=== PATIENT | female | born 1970 | race Hispanic/Latino ===

== ENCOUNTER 2017-07-02 11:48 | Observation (INO) | payer BC ==
[2017-07-02 12:22] VITALS: BMI 36.3
--- NOTE | 2017-07-02 12:29 | ED PDOC ---
Arrival/HPI - General Chief Complaint: Chest Pain Time Seen by Provider: 07/02/17 12:01 Historian: Patient - History of Present Illness Narrative History of Present Illness (Text): 07/02/17 12:20 47F obese w/ no significant cardiac history presents to the ED with Right sided sharp chest pain that radiates down the right arm that started yesterday. pain went away on its own, and started again today w/ heart palpitations. Pain was associate with diaphoresis. Denies pleuritic chest pain. Upon arrival to the ED symptoms have once again resolved. Pain is non-reproducible w/ palpation. Denies associated: changes in vision, loss of conciseness, numbness/tingling in extremities, current heart palpitations, shortness of breath, nausea, vomiting, diarrhea, fevers, chills, PMH: rosacea PSH: c-sec x 3 ALL: NKDA FamilyHx: hx of CAD and heart attack in extended family. Denies CAD in 1st degree relatives SocialHx: works at [employer], no additional stressors at this time. Drinks Caffeine at night. feels safe at home. Denies tobacco, EtOH, recreational drug use PMD: Dr. Dodd 07/02/17 13:41 Time/Duration: 24 hours Context: Work Past Medical History - Provider Review Nursing Documentation Reviewed: Yes - Travel History Have you recently traveled outside [place] w/in the past 3 mons?: No - Past History Past History: Non-Contributing - Infectious Disease Hx of Infectious Diseases: None - Cardiac Hx Cardiac Disorders: No - Pulmonary Hx Respiratory Disorders: No - Neurological Hx Neurological Disorder: No - HEENT Hx HEENT Disorder: No - Renal Hx Renal Disorder: No - Endocrine/Metabolic Hx Endocrine Disorders: No - Hematological/Oncological Hx Blood Disorders: No - Integumentary Other/Comment: Rosacea - Musculoskeletal/Rheumatological Hx Musculoskeletal Disorders: No - Gastrointestinal Hx Gastrointestinal Disorders: No - Genitourinary/Gynecological Hx Genitourinary Disorders: No - Psychiatric Hx Psychophysiologic Disorder: No Hx Substance Use: No - Anesthesia Hx Anesthesia: No Family/Social History - Physician Review Nursing Documentation Reviewed: Yes Family/Social History: CAD/VT Narrative Family History (Free Text): 07/02/17 14:01 Maternal side w/ Cardiac history w/ uncles. Smoking Status: Never Smoked Hx Alcohol Use: No Hx Substance Use: No Hx Substance Use Treatment: No Allergies/Home Meds Allergies/Adverse Reactions: Allergies No Known Allergies Allergy (Verified 07/02/17 12:08) Home Medications: Home Meds Medication Instructions Recorded Confirmed No Known Home Med 07/02/17 07/02/17 Review of Systems - Review of Systems Eyes: Normal Respiratory: Normal Cardiovascular: Normal Gastrointestinal: Normal Musculoskeletal: Normal Skin: Normal Physical Exam Vital Signs Reviewed: Yes Vital Signs Temp Pulse Resp BP Pulse Ox 07/02/17 12:08 98.2 F 70 18 137/73 98 Temperature: Afebrile Blood Pressure: Normal Pulse: Regular Respiratory Rate: Normal Appearance: Positive for: Well-Appearing, Non-Toxic Mental Status: Positive for: Alert and Oriented X 3 - Systems Exam Head: Present: Atraumatic Pupils: Present: PERRL Extroacular Muscles: Present: EOMI Mouth: Present: Moist Mucous Membranes Respiratory/Chest: Present: Clear to Auscultation, Good Air Exchange. No: Respiratory Distress, Accessory Muscle Use, Rhonchi Cardiovascular: Present: Normal S1, S2 Abdomen: Present: Normal Bowel Sounds. No: Tenderness, Distention, Peritoneal Signs, Rebound, Guarding, McBurney's Point Tender Upper Extremity: Present: Normal Inspection, Capillary Refill < 2s. No: Cyanosis, Edema Lower Extremity: Present: Normal Inspection. No: Edema, Sunny's Sign Neurological: Present: GCS=15 Skin: Present: Warm, Rashes, Other (Facial erythematous rash) Psychiatric: Present: Alert, Oriented x 3 Medical Decision Making ED Course and Treatment: 07/02/17 12:30 CXR EKG Trops Labs: lipase & UA 07/02/17 13:55 Chest Xray- no acute changes First set of trops negative EKG NSR UA& Lipase normal Discussed w/ Dr. Fuentes w/ Patient onsent and associate symptoms and significant family history of cardiac disease. Patient to be admitted remote telemetry Re-evaluation Time: 14:03 Reassessment Condition: Improved - Lab Interpretations Lab Results: 07/02/17 12:30 07/02/17 12:30 Lab Results 07/02/17 12:50: Urine Color Yellow, Urine Appearance Clear, Urine pH 6.0, Ur Specific [place] 1.020, Urine Protein Negative, Urine Glucose (UA) Negative, Urine Ketones Negative, Urine Blood Negative, Urine Nitrate Negative, Urine Bilirubin Negative, Urine Urobilinogen 0.2, Ur Leukocyte Esterase Negative 07/02/17 12:30: Sodium 141, Potassium 4.0, Chloride 106, Carbon Dioxide 25, Anion Gap 14, BUN 11, Creatinine 0.8, Est GFR ( Amer) > 60, Est GFR (Non- Af Amer) > 60, Random Glucose 92, Calcium 9.5, Total Bilirubin 0.4, AST 27, ALT 64 H, Alkaline Phosphatase 80, Troponin I < 0.01, Total Protein 7.3, Albumin 4.0 , Globulin 3.2, Albumin/Globulin Ratio 1.3, Lipase 79 07/02/17 12:30: WBC 7.3, RBC 4.89, Hgb 13.8, Hct 41.2, MCV 84.3, MCH 28.2, MCHC 33.5, RDW 13.9, Plt Count 253, MPV 11.3 H, Gran % 67.5, Lymph % (Auto) 24.1, [place] % (Auto) 6.5 H, Eos % (Auto) 1.6, Baso % (Auto) 0.3, Gran # 4.94, Lymph # ( Auto) 1.8, [place] # (Auto) 0.5, Eos # (Auto) 0.1, Baso # (Auto) 0.02 I have reviewed the lab results: Yes Interpretation: All labs normal - RAD Interpretation Narrative RAD Interpretations (Text): CXR within normal limits no signs of acute active disease Radiology Orders: 07/02/17 12:30 CHEST TWO VIEWS (PA/LAT) [RAD] Stat - EKG Interpretation EKG Interpretation (Text): NSR Normal QT duration WI interval normal. No previous EKG to compare Interpreted by ED Physician: Yes Type: 12 lead EKG Comparison: No previous EKG avail. Disposition/Present on Arrival - Present on Arrival Any Indicators Present on Arrival: No History of DVT/PE: No History of Uncontrolled Diabetes: No Urinary Catheter: No History of Decub. Ulcer: No History Surgical Site Infection Following: None - Disposition Have Diagnosis and Disposition been Completed?: Yes Diagnosis: Chest pain with low risk for cardiac etiology Disposition: HOSPITALIZED Disposition Time: 13:59 Patient Plan: Admission, Observation Condition: STABLE Discharge Instructions (ExitCare): Chest Pain (ED) Forms: [employer] (Lithuanian)
[2017-07-02 12:55] LABS: BASO # 0.02 K/mm3 (0.0-2.0); BASO % 0.3 % (0.0-3.0); EOS # 0.1 (0.0-0.7); EOS % 1.6 % (1.5-5.0); GRAN # 4.94 (1.4-6.5); GRAN % 67.5 % (50.0-68.0); HEMOGLOBIN 13.8 g/dL (12.0-16.0); LYMPH # 1.8 (1.2-3.4); LYMPH % 24.1 % (22.0-35.0); MEAN CELL VOLUME 84.3 fl (80.0-105.0); MEAN CORPUSCULAR HEMOGLOBIN 28.2 pg (25.0-35.0); MEAN CORPUSCULAR HGB CONC 33.5 g/dl (31.0-37.0); MEAN PLATELET VOLUME 11.3 fl (7.0-11.0); MONO # 0.5 (0.1-0.6); MONO % 6.5 % (1.0-6.0); RBC 4.89 10^6/uL (3.5-6.1); RED CELL DISTRIBUTION WIDTH 13.9 % (11.5-14.5); WHITE BLOOD COUNT 7.3 10^3/ul (4.5-11.0)
[2017-07-02 13:00] LABS: URINE BILIRUBIN NEGATIVE (NEGATIVE); URINE BLOOD NEGATIVE (NEGATIVE); URINE GLUCOSE (UA) NEGATIVE (NEGATIVE); URINE LEUKOCYTE ESTERASE NEGATIVE Leu/uL (NEGATIVE); URINE NITRATE NEGATIVE (NEGATIVE); URINE PROTEIN NEGATIVE mg/dL (<30 mg/dL); URINE UROBILINOGEN 0.2 E.U./dL (<1 E.U./dL)
[2017-07-02 13:03] LABS: URINE APPEARANCE CLEAR (CLEAR); URINE COLOR YELLOW (YELLOW)
[2017-07-02 13:03] LABS: ALB/GLOB RATIO 1.3 (1.1-1.8); ALT/SGPT 64 U/L (7-56); AST/SGOT 27 U/L (14-36); BLOOD UREA NITROGEN 11 mg/dL (7-21); CALCIUM 9.5 mg/dL (8.4-10.5); GFR AFRICAN-AMERICAN > 60; GFR NON-AFRICAN AMERICAN > 60; LIPASE 79 U/L (23-300)
[2017-07-02 13:13] LABS: TROPONIN I < 0.01 ng/mL
--- NOTE | 2017-07-02 13:23 | RAD ---
HISTORY: chest pain COMPARISON: No prior. TECHNIQUE: Chest PA and lateral FINDINGS: LUNGS: No active pulmonary disease. PLEURA: No significant pleural effusion identified. No pneumothorax apparent. CARDIOVASCULAR: Normal. OSSEOUS STRUCTURES: No significant abnormalities. VISUALIZED UPPER ABDOMEN: Normal. OTHER FINDINGS: None. IMPRESSION: No active disease.
[2017-07-02 19:05] LABS: TROPONIN I < 0.01 ng/mL
--- NOTE | 2017-07-02 20:58 | HP ---
DATE OF EXAM: 07/02/2017 HISTORY OF PRESENT ILLNESS: This 47-year-old female was examined at her bedside in the emergency room where she is being admitted for chest pain. She presented to the emergency room earlier this morning complaining of sharp chest discomfort that radiated down her right arm and was associated with numbness and heart palpitations. The patient states she had a similar episode of chest discomfort last evening and when it recurred again today at work, was seen by the employment nursing staff who called and had the patient brought to the ER for further evaluation of the above. The patient was given aspirin on route and at present she is chest pain free. PAST MEDICAL HISTORY: Significant for rosacea and patient also is status post C-sections and tubal ligation. MEDICATIONS: She denies any oral medication. ALLERGIES: SHE DENIES ALLERGIES TO MEDICATION. FAMILY HISTORY: Significant in that her father has a history of a heart attack in his 50s and her maternal uncles all had cardiac issues including heart attack, coronary artery related deaths and permanent pacemaker placements. 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 REVIEW OF SYSTEMS: HEENT: Head review: No headache or seizure. Eye review: No change in visual acuity. Ear review: No hearing loss. Throat review: No swallowing difficulty. NECK REVIEW: No stiffness. CARDIAC REVIEW: No history of atherosclerotic heart disease. PULMONARY: No hemoptysis. GASTROINTESTINAL: No hematemesis. No melena. GENITOURINARY: No dysuria. SKIN: She has rosacea on her face. No ulcers. VASCULAR: No history of peripheral vascular disease. HEME; No history of anemia. NEUROLOGIC: No seizures. PSYCHOLOGICAL: Denied anxiety or depression. MEDICATIONS: No outpatient medications. PHYSICAL EXAMINATION: VITAL SIGNS: Temperature 98.2, respirations 18, pulse 70 and blood pressure 137/73. Pulse ox 98% room air. HEENT: Head normocephalic, atraumatic. Eyes: No icterus. Ears: Clear. Throat: Noninjected. NECK: Supple. HEART: Regular S1, S2. No pathological rubs, murmurs or gallops. LUNGS: Clear. ABDOMEN: Soft. EXTREMITIES: No edema. SKIN: Facial rosacea. VASCULAR: Legs warm to touch. PSYCHOLOGICAL: Alert and oriented x3. NEUROLOGIC: Grossly intact. LABORATORY DATA: White count 7300, hemoglobin 13.8, hematocrit 41.2, platelets 253,000. Sodium 141, K 4.0, chloride 106, bicarb 25, BUN 11, creatinine 0.8, random blood sugar 92. Bilirubin 0.4, AST 27, ALT 64, alk phos 80. Troponin less than 0.01. Lipase 79. Urinalysis unremarkable. Chest x-ray was reviewed. There was no pneumonic infiltrates. No pleural effusions, no pneumothorax and cardiac silhouette was normal in size. IMPRESSION: A 50-year-old female with a body mass index of 36 consistent with obesity, strong family history of atherosclerotic heart disease, admitted with chest pain and arm numbness, rule out coronary artery syndrome. PLAN: Patient will be admitted to the cardiac [facility]garwal. I have ordered a stat T4 level, a fasting lipid panel and cardiac isoenzymes x2. She did receive aspirin. She will get an order for Pepcid 40 mg p.o. at bedtime and I have ordered a echocardiogram to further evaluate her symptoms of chest pain. She will be started on a heart-healthy soft bland diet with plans for outpatient stress testing if all of the above is stable. All of the above was discussed in detail with the patient at her bedside and all questions were answered. Jocelyn Fuentes MD [facility]
[2017-07-03 00:57] LABS: TROPONIN I < 0.01 ng/mL
[2017-07-03 06:14] VITALS: RESP 18; O2SAT 98
[2017-07-03 07:13] LABS: HDL CHOLESTEROL 31 mg/dL (29-60)
[2017-07-03 07:23] LABS: LDL CHOLESTEROL 160 mg/dL (0-129)
--- NOTE | 2017-07-03 09:37 | CARD ---
APPROVED REPORT EKG Measurement Heart [id number] IA [id number] [id number] <Conclusion> Normal sinus rhythm Normal ECG
[2017-07-03 11:59] VITALS: BP 114/81; TEMP 98.8
[2017-07-03 16:00] VITALS: PULSE 70
--- NOTE | 2017-07-03 16:17 | CARD ---
APPROVED REPORT EXAM: Two-dimensional and M-mode echocardiogram with Doppler and color Doppler. INDICATION Chest Pain 2D DIMENSIONS Left Atrium (2D)3.6 (1.6-4.0cm)IVSd1.1 (0.7-1.1cm) Aortic Root (2D)3.0 (2.0-3.7cm)LVDd4.2 (3.9-5.9cm) PWd0.9 (0.7-1.1cm)LVDs2.1 (2.5-4.0cm) FS (%) 49.8 %LVEF (%)81.5 (>50%) M-Mode DIMENSIONS Aortic Cusp Exc.2.30 (1.5-2.0cm) Aortic Valve AoV Peak Uibxulcs551.0cm/Tricia Peak GR.5mmHg Mitral Valve MV E Wyemoqhk64.8cm/sMV A Bsmouzbj42.8cm/sE/A ratio1.1 TDI Lateral E' Peak V8.68cm/sMedial E' Peak V6.04cm/sE/Lateral E'6.4 E/Medial E'9.2 Pulmonary Valve PV Peak Reegfnbc98.1cm/sPV Peak Grad.3mmHg LEFT VENTRICLE The left ventricle is normal size. There is normal left ventricular wall thickness. The left ventricular function is normal.[id number] There is normal LV segmental wall motion. The left ventricular diastolic function is normal. No left ventricle thrombus noted on this study. There is no ventricular septal defect visualized. There is no left ventricular aneurysm. There is no mass noted in the left ventricle. RIGHT VENTRICLE The right ventricle is normal size. There is normal right ventricular wall thickness. The right ventricular systolic function is normal. ATRIA The left atrium size is normal. The right atrium size is normal. The interatrial septum is intact with no evidence for an atrial septal defect. AORTIC VALVE The aortic valve is normal in structure. No aortic regurgitation is present. There is no aortic valvular stenosis. There is no aortic valvular vegetation. MITRAL VALVE The mitral valve is thickened but opens well. Mitral regurgitation is trace. There is no mitral valve stenosis. There is no evidence of mitral valve prolapse. TRICUSPID VALVE The tricuspid valve leaflets are thickened , but open well. There is trace tricuspid regurgitation. There is no tricuspid valve stenosis. There is no tricuspid valve prolapse or vegetation. PULMONIC VALVE The pulmonary valve is normal in structure. There is no pulmonic valvular regurgitation. There is no pulmonic valvular stenosis. GREAT VESSELS The aortic root is normal in size. The ascending aorta is normal in size. The pulmonary artery is normal. The IVC is normal in size and collapses >50% with inspiration. PERICARDIAL EFFUSION There is no pleural effusion. There is no pericardial effusion. <Conclusion> normal chamber Size.EF-[id number]%. Trace MR/TR no vegetation or thromus noted
--- NOTE | 2017-07-04 08:06 | DS ---
FINAL DIAGNOSES: Chest pain, resolved; hyperlipidemia, obesity. DISPOSITION: Home. FOLLOWUP: In my office, 07/12/2017. The patient is to schedule a thallium Lexiscan stress test on 07/05/2017 as an outpatient. 2D echocardiogram results are pending at the time of this dictation. The patient will not return to work until completion of outpatient cardiac testing. SUMMARY: This 47-year-old female presented to [facility] ER with chest discomfort and complaints of palpitation and right arm intermittent numbness after presenting to work and being found to have the above complaints. In the emergency room, she was afebrile with mild anxiety related hypertension and she was admitted to the cardiac aggarwal, where she ruled out for myocardial infarction with negative troponin x3 as well as normal CPKs. 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 At the time of discharge, her vital signs were, temperature 98.7, respirations 18, pulse 80, blood pressure 112/75, and pulse of 80 with a pulse oximetry of 96% room air. Sodium 141, potassium 4.0, chloride 106, bicarb 25, BUN 11, creatinine 0.8, random blood sugar 92, CPK 95, second CPK 87. Troponin less than 0.01 x3. Fasting cholesterol 206, triglycerides 189, LDL 160, HDL 31, lipase 79. T4 normal, 7.7. White count 7300, hemoglobin 13.8, hematocrit 41.2, platelets 253,000. Urinalysis was unremarkable. Chest x-ray showed no active pulmonary disease, no pleural effusions, no pneumothorax. Her cardiovascular silhouette was normal. I have asked her nurse to obtain a verbal reading on her 2D echocardiogram and if normal, to give the patient a copy of a low-cholesterol, low-triglyceride diet and discharge her to home. I have discussed with the patient not returning to work until the completion of outpatient stress testing on 07/05/2017, and also to follow a low-cholesterol, low-triglyceride diet, to take Pepcid 20 mg p.o. at bedtime, and to continue with light work duty until I see her at the office on 07/12/2017. The patient and were advised for any change in signs and symptoms or recurrent chest discomfort to present directly to the [facility] ER. They were aware and are in agreement with the above. Jocelyn Fuentes MD [facility]
== END 2017-07-03 16:21 | disposition home or self-care (01) ==
LOC: ED 11:48 → ERH 13:58 → 2RNO 17:35
PROVIDERS: ADMIT Internal Medicine; ATTEND Internal Medicine
DX: R07.9 Chest pain, unspecified (principal); F41.9 Anxiety disorder, unspecified; I10 Essential (primary) hypertension; E78.5 Hyperlipidemia, unspecified; E66.9 Obesity, unspecified; Z68.36 Body mass index [BMI] 36.0-36.9, adult; Z82.49 Family history of ischemic heart disease and other diseases of the circulatory system; L71.9 Rosacea, unspecified; R40.2412 Glasgow coma scale score 13-15, at arrival to emergency department; Z98.51 Tubal ligation status
CPT/HCPCS: 36415; 71046; 80053; 80061; 81003; 82550; 83615; 83690; 84436; 84484; 85025; 93005; 93306; 99284; G0378